=== PATIENT | female | born 1960 | race Caucasian/White ===

== ENCOUNTER 2020-12-02 15:39 | Emergency (ER) | payer OTHER ==
[2020-12-02] MEDS ORDERED: VALSARTAN160 MG PO (16:47)
[2020-12-02] MEDS ORDERED: PREDNISONE 20MG20 MG PO (17:52)
== END 2020-12-02 17:55 | disposition home or self-care (01) ==
LOC: FER 15:39
DX: M70.32 Other bursitis of elbow, left elbow (principal); I10 Essential (primary) hypertension; Z79.899 Other long term (current) drug therapy
CPT/HCPCS: 73080